=== PATIENT | male | born 1960 | race Caucasian/White ===

== ENCOUNTER → 2022-01-18 07:39 | Outpatient (CLI) | payer OTHER, SELFPAY ==
[2022-01-18 08:32] LABS: COVID19 -Nasal RAPID Negative (Negative)
--- NOTE | 2022-01-18 19:42 | DI.NM.S_ITS ---
DATE OF SERVICE: 01/18/2022 PROCEDURE PERFORMED: Exercise perfusion study. INDICATION: Exertional shortness of breath with underlying diabetes mellitus, hyperlipidemia. RADIOPHARMACEUTICAL: 25.9 millicurie technetium-99m Myoview IV was injected at stress and 11.8 millicurie technetium-99m Myoview IV was injected at rest. CARDIAC STRESS: The patient underwent exercise perfusion study under the supervision of an attending staff. the patient walked on German protocol for 10 minutes and 52 seconds, achieved 90 percent of target heart rate. There was appropriate blood pressure response. Baseline blood pressure was 104/58 mmHg. Peak blood pressure 162/80 mmHg. The patient achieved 12.8 METs of workload. VIOLA -29 percent. Baseline rhythm was sinus. During stress, there were no convincing ischemic changes seen. The patient had intermittent PVCs, including ventricular bigeminy and he was symptomatic with palpitation that time. No chest pain. Had some shortness of breath. RAW DATA: There is increased subdiaphragmatic activity. GATED STUDY: Resting LV ejection fraction 74 percent and stress LV ejection fraction 77 percent without any obvious wall motion abnormalities. Resting end- diastolic volume 95 mL. TID ratio 0.96, which is within normal limits. Lung/heart ratio 0.36, which is within normal limits. MYOCARDIAL PERFUSION SCAN: Stress supine, resting supine and stress prone images were compared to each other. Stress supine and resting supine images revealed small size, mildly decreased perfusion of basal inferior wall extending into the basal inferolateral and basal inferoseptum, which got resolved during stress prone images, suggestive of diaphragmatic tissue attenuation artifact. No convincing ischemia or infarction pattern seen. CONCLUSION: This is a normal myocardial perfusion study with evidence of diaphragmatic tissue attenuation artifact, which got resolved during prone images. Summed stress score and rest score is zero. Excellent exercise tolerance. Achieved 12.8 metabolic equivalents of workload. Functional aerobic impairment -29 percent. Normal hemodynamic response. No chest pain. The patient has intermittent premature ventricular contractions, including ventricular bigeminy during exercise and at that time, the patient felt palpitation. Preserved left ventricular function. Overall, low-risk myocardial perfusion scan. Correlate clinically. Rubén Brown - Tom/riley doc#: [id number]/job#: [id number] dd: 01/18/2022 17:11:00 dt: 01/18/2022 19:12:00 DICTATING MD/COPIES TO: Sari Jacques MD COPIES MNE: RD;
== END ==
PROVIDERS: Radiology Diagnostic Radiology; PCP Internal Medicine; Referring Provider Internal Medicine; Visit Provider Internal Medicine
DX: R06.09 Other forms of dyspnea (principal); Z20.822 Contact with and (suspected) exposure to COVID-19
CPT/HCPCS: 78452; 87635; 93017; A9502

== ENCOUNTER → 2024-10-24 15:42 | Outpatient (CLI) | payer OTHER, SELFPAY ==
--- NOTE | 2024-10-24 15:43 | DI.US.S_ITS ---
PROCEDURE: US SOFT TISSUE HEAD AND NECK INDICATIONS: soft tissue mass TECHNIQUE: Real-time scanning was performed of the neck region of interest, with image documentation. COMPARISON: None. FINDINGS: Hypoechoic lesion measuring 4.1 x 3.2 x 1.0 cm with heterogeneous echotexture and no vascularity. IMPRESSION: Mass within the area of concern may represent a lipoma. Other benign and malignant etiologies are in the differential. Recommend clinical correlation and follow- up. Repeat imaging can be obtained as clinically indicated. Dictated by: Dhruv Crawford M.D. on 10/26/2024 at 16:06 Approved by: Dhruv Crawford M.D. on 10/26/2024 at 16:08
== END ==
LOC: US 15:43
PROVIDERS: PCP Internal Medicine; Referring Provider Family Medicine; Visit Provider Family Medicine
DX: M79.89 Other specified soft tissue disorders (principal)
CPT/HCPCS: 76536